=== PATIENT | female | born 1960 | race Caucasian/White ===

== ENCOUNTER 2016-08-28 15:48 | Emergency (ER) | payer MEDICARE ==
[2016-08-28 16:09] VITALS: BP 126/61
--- NOTE | 2016-08-28 16:51 | UC ---
Eye Complaint HPI - HPI Summary HPI Summary: 46 YO FEMALE WITH LEFT EYE REDNESS AND IRRITATION X 1 WEEK MATTED SHUT IN AMs NO F/C NO PHOTOPHOBIA NO FB SENSATION - History of Current Complaint Chief Complaint: UCEye Stated Complaint: LT EYE COMPLAINT Time Seen by Provider: 08/28/16 16:46 Hx Obtained From: Patient Onset/Duration: Gradual Onset, Lasting Weeks - 1 Timing: Constant Severity Initially: Mild Severity Currently: Mild Pain Intensity: 1 Pain Scale Used: 0-10 Numeric Location of Injury: Other - NO INJURY Aggravating Factor(s): Nothing Alleviating Factor(s): Nothing Associated Signs And Symptoms: Positive: Drainage (Purulent) - Risk Factors Penetrating Injury Risk Factor: Negative Globe Rupture Risk Factors: Negative Acute Glaucoma Risk Factors: Negative Optic Artery Occlusion Risk Factors: Negative - Allergies/Home Medications Allergies/Adverse Reactions: Allergies Allergy/AdvReac Type Severity Reaction Status Date / Time Bupropion [From Wellbutrin] Allergy Intermediate Hives Verified 08/28/16 16:08 Diphenhydramine Allergy Intermediate hives / Verified 08/28/16 16:08 [From Benadryl] vomiting Home Medications: Home Medications Atorvastatin* [Lipitor*] 40 mg PO DAILY 08/28/16 [History Confirmed 08/28/16] Budesonide NASAL (NF) [Rhinocort Aqua (NF)] 2 inh NA ONCE 08/28/16 [History Confirmed 08/28/16] DULoxetine DR CAP* [Cymbalta CAP*] 60 mg PO DAILY 08/28/16 [History Confirmed ] Losartan TAB* [Cozaar TAB*] 50 mg PO DAILY 08/28/16 [History Confirmed 08/28/16] Natures Boundty Hair/Skin/Nails 2 tab DAILY 08/28/16 [History Confirmed 08/28/16 ] QUEtiapine TAB* [SEROquel TAB*] 50 mg PO BEDTIME 08/28/16 [History Confirmed ] Tizanidine HCl 4 mg PO TID PRN 08/28/16 [History Confirmed 08/28/16] PMH/Surg Hx/FS Hx/Imm Hx Previously Healthy: Yes Endocrine History Of: Reports: Diabetes Cardiovascular History Of: Denies: Hypertension, Pacemaker/ICD Respiratory History Of: Reports: Asthma GI/ History Of: Denies: Renal Disease - Surgical History Surgical History: Yes Surgery Procedure, Year, and Place: C-SECT X 2, HYSTERECTOMY, TUBAL, REVERSAL, NASAL SEPTUM, SINUS, THROAT BIOPSY, STOMACH BIOPSY, ABD LAP, 06/2016-neck/ "spacer" - Family History Known Family History: Positive: Diabetes, Other - DYSLIPIDEMIA - Social History Alcohol Use: Rare Substance Use Type: Marijuana Substance Use Comment - Amount & Last Used: daily Smoking Status (MU): Heavy Every Day Tobacco Smoker Type: Cigarettes Amount Used/How Often: 1 ppd - Immunization History Most Recent Influenza Vaccination: 2603-8524 Most Recent Tetanus Shot: 2011 Review of Systems Constitutional: Negative Skin: Negative Eyes: Drainage, Eye Redness ENT: Negative Respiratory: Negative Cardiovascular: Negative Gastrointestinal: Negative Genitourinary: Negative Motor: Negative Neurovascular: Negative Musculoskeletal: Negative Neurological: Negative Psychological: Negative All Other Systems Reviewed And Are Negative: Yes Physical Exam Triage Information Reviewed: Yes Vital Signs: Initial Vital Signs Temp 97.6 F 08/28/16 16:02 Pulse 95 08/28/16 16:02 Resp 18 08/28/16 16:02 BP 126/61 08/28/16 16:02 Pulse Ox 97 08/28/16 16:02 Eyes: Positive: Conjunctiva Inflamed - L, Discharge - L, Other: - EMOI/PERRL ENT: Positive: Hearing grossly normal. Negative: Nasal congestion, Nasal drainage, Tonsillar exudate, Trismus Neck: Positive: Supple, Nontender Respiratory: Positive: Lungs clear, Normal breath sounds, No respiratory distress Cardiovascular: Positive: RRR, No Murmur Musculoskeletal: Positive: ROM Intact, No Edema Neurological: Positive: Alert Psychological Exam: Normal Skin Exam: Normal Eye Complaint Course/Dx - Differential Dx/Diagnosis Provider Diagnoses: LEFT CONJUNCTIVITIS Discharge - Discharge Plan Condition: Stable Disposition: HOME Prescriptions: Polymyx/Trimethoprim OPTH* [Polytrim OPHTH*] 1 - 2 drop LEFT EYE QID #1 btl Patient Education Materials: Conjunctivitis (ED) Referrals: Annamarie Acevedo MD [Primary Care Provider] - Additional Instructions: ZADITOR EYE DROPS (OTC) MAY GIVE YOU SOME RELIEF FROM THE ITCHING
== END 2016-08-28 17:03 | disposition home or self-care (01) ==
LOC: UCCORT 15:48
DX: H10.32 Unspecified acute conjunctivitis, left eye (principal); Z88.8 Allergy status to other drugs, medicaments and biological substances; F12.90 Cannabis use, unspecified, uncomplicated; F17.210 Nicotine dependence, cigarettes, uncomplicated
CPT/HCPCS: 99212; G0463